=== PATIENT | female | born 1940 | race Caucasian/White ===

== ENCOUNTER → 2016-10-16 | Outpatient (CLI) | payer MEDICARE ==
[~2016-10-16] MED LIST: ALPR.5T; ASP325T; ASP81CT GT; CARV3.122 PO; CEFD300C PO; CLCX200C; ENOX120D PO; ESTR0.3T; FEXO180T; FLT22013; FURO20TA4; GABA300C; GADOXETATE 2.5 MMOL/10 ML (EOVIST) IV ONE; HYDR-3857 PO; IPRA3AMP19; LVT.05T PO; METO100T5; POTA20PI IV; PROP1TAB77; TOLTA4; TRIA1CAP PO; TRM50T PO; TROSP20C; VALS160C; VLS80C PO; WRF10T PO
[2016-10-16 12:26] LABS: ALBUMIN 3.8 G/DL (3.2-4.5); CREATININE SERUM 1.2 MG/DL (0.60-1.30)
--- NOTE | 2016-10-16 14:42 | Diagnostic Imaging Report ---
INDICATION: Liver lesions. TECHNIQUE: MRI of the abdomen obtained pre and post IV contrast with Eovist contrast protocol. FINDINGS: There are four separate lesions in the liver in the right lobe. There is a lesion in the right lobe laterally measuring about 1.3 cm. There is a lesion in the right lobe laterally and anteriorly, more inferior to the above lesion, measuring about 2.0 cm. There is a lesion just medial to this lesion measuring about 11 mm. There is a tiny lesion in the right lobe anteriorly measuring about 3 mm. These lesion all have similar characteristics with lack of enhancement and bright signal on T2-weighted images. These are all compatible with cysts. There is no definite solid liver lesion. The spleen, adrenals, and pancreas are normal in appearance. The kidneys bilaterally are unremarkable. There is no retroperitoneal mass or hematoma. There is no ascites. IMPRESSION: There are four separate small lesions in the liver as described above which appear to be simple cysts. There is no solid lesion. There is no other focal abnormality. Dictated by: Dictated on workstation # [id number]
[2016-10-19 08:08] LABS: ALPHA-FETO PROTEIN MARKER 2.2 ng/mL (1.5-10.0)
== END ==
LOC: RAD 11:07
DX: R93.2 Abnormal findings on diagnostic imaging of liver and biliary tract (principal); K76.9 Liver disease, unspecified
CPT/HCPCS: 36415; 74183; 82040; 82105; 82378; 82565; 86301

== ENCOUNTER → 2018-10-18 | Outpatient (CLI) | payer MEDICARE ==
[~2018-10-18] MED LIST changes: -GADOXETATE 2.5 MMOL/10 ML (EOVIST) IV ONE
== END ==
LOC: WOUNDCARE 09:43
PROVIDERS: ATTEND Nurse Practitioner
DX: L97.222 Non-pressure chronic ulcer of left calf with fat layer exposed (principal); I87.2 Venous insufficiency (chronic) (peripheral); I70.242 Atherosclerosis of native arteries of left leg with ulceration of calf
CPT/HCPCS: 99214

== ENCOUNTER → 2018-10-27 | Outpatient (CLI) | payer MEDICARE | LOC: WOUNDCARE 09:59 | PROVIDERS: ATTEND Nurse Practitioner | DX: L97.222 Non-pressure chronic ulcer of left calf with fat layer exposed (principal); I87.2 Venous insufficiency (chronic) (peripheral); I70.242 Atherosclerosis of native arteries of left leg with ulceration of calf | CPT/HCPCS: 99212; 99213 ==

== ENCOUNTER 2018-11-02 12:53 | Emergency (ER) | payer MEDICARE ==
[~2018-11-02] VITALS: Ht 160 cm; Wt 103.4 kg
--- OUTSIDE RECORDS SUMMARY | 2018-11-02 12:59 | XMS REPORT | Clinical Summary ---
Author Author [facility] Organization [facility] Address Unknown Phone Unavailable Care Team Providers Care Train Braker Name Role Phone PCP Unavailable Allergies Not on File Current Medications Not on file Active Problems Not on file Social History Tobacco Use Types Packs/Day Years Used Date Never Assessed Sex Assigned at Date Recorded Not on file Last Filed Vital Signs Not on file Plan of Treatment Not on file Results Not on filefrom Last 3 Months
--- OUTSIDE RECORDS SUMMARY | 2018-11-02 13:00 | XMS REPORT | Continuity of Care Document ---
Author Author [facility] Organization [facility] Address Unknown Phone Unavailable Care Team Providers Care Profile Grinder Technician Name Role Phone LILIANA CUEVAS MD PP Insurance Providers Payer Name Policy Number Subscriber Name Relationship Nawaf De Souza [facility] Supp [id number] Divya Berrios Self / Same As Patient Wps Medicare [id number] Divya Berrios Self / Same As Patient Advance Directives Directive Response Recorded Date Advance Directives Y 02/05/13 4:59am Health Care Power of Quality Assurance Specialist Y 02/05/13 4:59am Organ Donor N 02/05/13 4:59am Problems No Known Problems or Medical conditions. Family History History Response Recorded Date/Time Hx Family Cancer Y FATHER MELANOMA/GRANDMOTHER CA PANCREAS 02/05/13 4:10am Hx Family Cardiac Disorders Y 02/05/13 4:10am Hx Family Myocardial Infarction Y GRANDFATHER 02/05/13 4:10am Social History History Response Recorded Date/Time Alcohol Use Occasionally Uses 02/05/13 4:10am Recreational Drug Use N 02/05/13 4:10am Sexually Transmitted Disease N 02/05/13 4:10am Allergies, Adverse Reactions, Alerts Allergen Type Severity Reaction Last Updated No Known Drug Allergies 12/07/08 Medications Medication Dose Units Route Sig Qty Days Cefdinir (Omnicef Capsule) 300 Mg PO BID 7 Warfarin Sodium (Coumadin) 1 Each PO DAILY 30 Enoxaparin Sodium (Lovenox) 1 Each PO Q12HR 7 Hydrocodone Bit/Acetaminophen (Hydrocodon-Acetaminoph 2.5-325) 1 Each PO Tramadol HCl (Ultram) 50 Mg PO BID Potassium Chloride 10 Meq IV Carvedilol 1 Each PO BID Levothyroxine Sodium (Synthroid) 1 Each PO DAILY Aspirin (Baby Aspirin Chewable Tablet) 81 Mg GT Albuterol Sulfate/Ipratropium (Duoneb 2.5-0.5 Mg/3 Ml Soln) Fluticasone Propionate (Flovent Hfa 220 Mcg) Alprazolam (Xanax) Furosemide Gabapentin (Neurontin) Triamterene/HCTZ (Dyazide 37.5-25 Capsule) 1 Each PO DAILY Valsartan (Diovan 80 Mg) 1 Each PO DAILY Celecoxib (Celebrex) Estrogens Conjugated (Premarin Tab) Trospium Chloride (Sanctura) Propoxyphene HCl/Acetaminophen (Darvocet-N 100/650) Fexofenadine HCl (Rosemarie) Tolterodine Tartrate (Detrol La 4 Mg Cap) Metoprolol Succinate (Metoprolol Succinate Xl 100 Mg) Immunizations Name Given Type Date of Pneumonia Vaccine 06/14/04 H pneumococcal polysaccharide PPV23 02/07/13 A pneumococcal polysaccharide PPV23 02/07/13 A Response Recorded Date/Time Status not known Unknown Results Test Date Result Interp. Ref. Range Activated Partial Thromboplast Time February 05, 2013 12:42am 29 SEC N 24-35 Alanine Aminotransferase (ALT/SGPT) February 05, 2013 12:42am 28 U/L L 30-65 Albumin February 05, 2013 12:42am 2.9 G/DL L 3.4-5.0 Alkaline Phosphatase February 05, 2013 12:42am 78 U/L N 50-136 Aspartate Amino Transf (AST/SGOT) February 05, 2013 12:42am 14 U/L L 15-37 BUN/Creatinine Ratio February 05, 2013 12:42am 12 - Basophils # (Auto) February 05, 2013 12:42am 0.0 10^3/uL N 0.0-0.1 Basophils (%) (Auto) February 05, 2013 12:42am 0 % N 0-10 Blood Urea Nitrogen February 05, 2013 12:42am 17 MG/DL N 7-18 Calcium Level February 05, 2013 12:42am 10.0 MG/DL N 8.5-10.1 Carbon Dioxide Level February 05, 2013 12:42am 36 MMOL/L H 21-32 Chloride Level February 05, 2013 12:42am 102 MMOL/L N 101-110 Creatinine February 05, 2013 12:42am 1.4 MG/DL H 0.6-1.3 Eosinophils # (Auto) February 05, 2013 12:42am 0.2 10^3/uL N 0.0-0.3 Eosinophils (%) (Auto) February 05, 2013 12:42am 1 % N 0-10 Glucose Level February 05, 2013 12:42am 154 MG/DL H 74-106 Hematocrit February 05, 2013 12:42am 49 % N 35-52 Hemoglobin February 05, 2013 12:42am 16.9 G/DL H 11.5-16.0 Lymphocytes # (Auto) February 05, 2013 12:42am 4.2 X 10^3 H 1.0-4.0 Lymphocytes (%) (Auto) February 05, 2013 12:42am 38 % N 12-44 Magnesium Level December 08, 2008 6:10am 1.6 MG/DL L 1.8-2.4 Mean Corpuscular Hemoglobin February 05, 2013 12:42am 32 PG N 25-34 Mean Corpuscular Hemoglobin Concent February 05, 2013 12:42am 35 G/DL N 32-36 Mean Corpuscular Volume February 05, 2013 12:42am 93 FL N 80-99 Mean Platelet Volume February 05, 2013 12:42am 11.1 FL H 7.4-10.4 Monocytes # (Auto) February 05, 2013 12:42am 0.9 X 10^3 N 0.0-1.0 Monocytes (%) (Auto) February 05, 2013 12:42am 8 % N 0-12 Neutrophils # (Auto) February 05, 2013 12:42am 5.7 X 10^3 N 1.8-7.8 Neutrophils (%) (Auto) February 05, 2013 12:42am 52 % N 42-75 Platelet Count February 05, 2013 12:42am 162 10^3/uL N 130-400 Potassium Level February 05, 2013 12:42am 3.2 MMOL/L L 3.6-5.0 Prothrombin Time February 05, 2013 12:42am 12.4 SEC N 12.2-14.7 Red Blood Count February 05, 2013 12:42am 5.27 10^6/uL N 4.35-5.85 Red Cell Distribution Width February 05, 2013 12:42am 15.0 % H 10.0-14.5 Sodium Level February 05, 2013 12:42am 138 MMOL/L N 135-145 Total Bilirubin February 05, 2013 12:42am 0.3 MG/DL N 0.0-1.0 Total Protein February 05, 2013 12:42am 6.3 G/DL L 6.4-8.2 Urine Bacteria February 05, 2013 1:55am LARGE /HPF H - Urine Bilirubin February 05, 2013 1:55am 1+ H - Urine Casts February 05, 2013 1:55am NONE /LPF - Urine Clarity February 05, 2013 1:55am VERY CLOUDY H - Urine Color February 05, 2013 1:55am HUANG H - Urine Crystals February 05, 2013 1:55am NONE /LPF - Urine Culture Indicated February 05, 2013 1:55am YES - Urine Glucose (UA) February 05, 2013 1:55am NEGATIVE - Urine Ketones February 05, 2013 1:55am 1+ H - Urine Leukocyte Esterase February 05, 2013 1:55am 3+ H - Urine Mucus February 05, 2013 1:55am NEGATIVE /LPF - Urine Nitrite February 05, 2013 1:55am NEGATIVE - Urine Protein February 05, 2013 1:55am 2+ H - Urine RBC February 05, 2013 1:55am RARE /HPF - Urine Specific [place] February 05, 2013 1:55am 1.015 L - Urine Squamous Epithelial Cells February 05, 2013 1:55am 25-50 /HPF H - Urine Urobilinogen February 05, 2013 1:55am 1 MG/DL - Urine WBC February 05, 2013 1:55am 50-100 /HPF H - Urine pH February 05, 2013 1:55am 5 - White Blood Count February 05, 2013 12:42am 11.1 10^3/uL H 4.3-11.0 Estimat Glomerular Filtration Rate February 05, 2013 12:42am 37 - Urine RBC (Auto) February 05, 2013 1:55am 1+ H - INR Comment February 05, 2013 12:42am 0.9 N 0.8-1.4 Procedures Procedure Code Date UPPER GI ENDOSCOPY BIOPSY 82782 10/25/06 LESION REMOVE COLONOSCOPY 58819 10/25/06 COLONOSCOPY AND BIOPSY 09899 10/25/06 OTHER OPEN INCISIONAL HERNIA REPAIR WITH GRAFT OR PROSTHESIS 53.61 12/07/08 ASPIRATION SKIN & SUBQ 86.01 01/17/09 MRSA Screen 12/05/08 Gram Stain 08/06/09 Encounters Encounter Location Date/Time Discharged Inpatient [facility] 02/05/13 3:33am
--- OUTSIDE RECORDS SUMMARY | 2018-11-02 13:00 | XMS REPORT | Continuity of Care Document ---
Author Organization Unknown Address Unknown Allergies Active Description Code Type Severity Reaction Onset Reported/Identified Relationship to Patient Clinical Status Yes No Known Drug Allergies [id number] Drug Allergy Unknown N/A 12/07/2008 Medications There is no data. Problems Date Dx Coded Attending Type Code Diagnosis Diagnosed By 02/07/2013 MARIANELA ESCAMILLA DO S Ot 041.89 BACTERIAL INFECTION DUE TO OTHER SPECIFI 02/07/2013 SAMANTHANDMARINA DOJUANMARIANELA S Ot 244.9 HYPOTHYROIDISM NOS 02/07/2013 SAMANTHANDMARINA DO MARIANELA S Ot 276.51 DEHYDRATION 02/07/2013 SAMANTHANDMARINA DO MARIANELA S Ot 276.8 HYPOPOTASSEMIA 02/07/2013 SAMANTHANDMARINA DO MARIANELA S Ot 305.1 TOBACCO USE DISORDER 02/07/2013 SAMANTHANDER DO, MARIANELA S Ot 415.19 OTH PULMON EMBOLISM/INFARCT 02/07/2013 SAMANTHANDER DO MARIANELA S Ot 453.41 ACUTE VENOUS EMBOLISM THROMBOSIS DEEP 02/07/2013 SAMANTHANDER DO, MARIANELA S Ot 458.9 HYPOTENSION NOS 02/07/2013 SAMANTHANDER DO, MARIANELA S Ot 496 CHR AIRWAY OBSTRUCT NEC 02/07/2013 SAMANTHANDER DO MARIANELA S Ot 530.81 ESOPHAGEAL REFLUX 02/07/2013 SAMANTHANDMARINA DO MARIANELA S Ot 593.9 RENAL URETERAL DIS NOS 02/07/2013 SAMANTHANDER DO, MARIANELA S Ot 599.0 URIN TRACT INFECTION NOS 10/16/2016 CORY QUINONEZ, CECILE Mc Ot R93.2 ABNORMAL FINDINGS ON DX IMAGING OF LIVER 10/16/2016 CORY QUINONEZ, CECILE Mc Ot Z85.038 PERSONAL HISTORY OF MALIGNANT NEOPLASM O 10/16/2016 CECILE RAY MD Ot Z86.010 PERSONAL HISTORY OF COLONIC POLYPS 10/16/2016 CECILE RAY MD Ot R93.2 ABNORMAL FINDINGS ON DX IMAGING OF LIVER 10/16/2016 CECILE RAY MD Ot Z85.038 PERSONAL HISTORY OF MALIGNANT NEOPLASM O 10/16/2016 CECILE RAY MD Ot Z86.010 PERSONAL HISTORY OF COLONIC POLYPS 10/16/2016 CECILE RAY MD Ot R93.2 ABNORMAL FINDINGS ON DX IMAGING OF LIVER 10/16/2016 CECILE RAY MD Ot Z85.038 PERSONAL HISTORY OF MALIGNANT NEOPLASM O 10/16/2016 CECILE RAY MD L Ot Z86.010 PERSONAL HISTORY OF COLONIC POLYPS 10/16/2016 CECILE RAY MD Ot R93.2 ABNORMAL FINDINGS ON DX IMAGING OF LIVER 10/16/2016 CECILE RAY MD Ot Z85.038 PERSONAL HISTORY OF MALIGNANT NEOPLASM O 10/16/2016 CECILE RAY MD Ot Z86.010 PERSONAL HISTORY OF COLONIC POLYPS 10/16/2016 CECILE RAY MD Ot R93.2 ABNORMAL FINDINGS ON DX IMAGING OF LIVER 10/16/2016 CECILE RAY MD Ot Z85.038 PERSONAL HISTORY OF MALIGNANT NEOPLASM O 10/16/2016 CECILE RAY MD Ot Z86.010 PERSONAL HISTORY OF COLONIC POLYPS 10/23/2016 CECILE RAY MD Ot K76.9 LIVER DISEASE, UNSPECIFIED 10/23/2016 CECILE RAY MD Ot R93.2 ABNORMAL FINDINGS ON DX IMAGING OF LIVER 11/11/2016 CECILE RAY MD Ot K76.9 LIVER DISEASE, UNSPECIFIED 11/11/2016 CECILE RAY MD Ot R93.2 ABNORMAL FINDINGS ON DX IMAGING OF LIVER 11/12/2016 CECILE RAY MD Ot K76.9 LIVER DISEASE, UNSPECIFIED 11/12/2016 CECILE RAY MD Ot R93.2 ABNORMAL FINDINGS ON DX IMAGING OF LIVER 11/23/2016 CECILE RAY MD Ot K76.9 LIVER DISEASE, UNSPECIFIED 11/23/2016 CECILE RAY MD Ot R93.2 ABNORMAL FINDINGS ON DX IMAGING OF LIVER 10/18/2018 CECILE RAY MD Ot K76.9 LIVER DISEASE, UNSPECIFIED 10/18/2018 CECILE RAY MD Ot R93.2 ABNORMAL FINDINGS ON DX IMAGING OF LIVER 10/21/2018 JUAN F KENDRICK APRN Ot 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 Results Test Result Range Serum or plasma creatinine measurement (mass/volume) - 10/16/16 11:49 Serum or plasma creatinine measurement (mass/volume) 1.20 mg/dL 0.60-1.30 Serum or plasma albumin measurement (mass/volume) - 10/16/16 11:49 Serum or plasma albumin measurement (mass/volume) 3.8 g/dL 3.2-4.5 Serum or plasma [id number].tumor marker measurement (mass/volume) - 10/16/16 11:49 Serum or plasma [id number]-[id number].tumor marker measurement (mass/volume) 2.2 % 1.5-10.0 CARCINOEMBRYONIC ANTIGEN - 10/16/16 11:49 CEA PATIENT 4.6 % 0.0-5.0 CA 19-9 - 10/16/16 11:49 CA 19-9 C 10 u[iU]/mL 0-37 Encounters ACCT No. Visit Date/Time Discharge Status Pt. Type Provider Facility Loc./Unit Complaint [id number] 10/27/2018 11:45:00 10/27/2018 23:59:59 CLS Outpatient [facility] [id number] 10/27/2018 09:59:00 10/27/2018 23:59:59 CLS Outpatient JUAN F KENDRICK APRN [facility] [id number] 10/18/2018 09:43:00 10/18/2018 23:59:59 CLS Outpatient JUAN F KENDRICK APRN [facility] [id number] 10/16/2016 11:07:00 10/16/2016 23:59:59 CLS Outpatient CECILE RAY MD [facility] RAD R93.2 [id number] 02/05/2013 03:33:00 02/07/2013 20:00:00 DIS Inpatient MARIANELA ESCAMILLA DO [facility] CSD PULMONARY EMBOLISM, DVT, HYPOTENSION
[2018-11-02] MEDS ORDERED: NEO/POLY/BAC (NEOSPORIN) OINT 15 GM TUBE TOP SCH (13:30)
[2018-11-02] MEDS ORDERED: fentaNYL INJECTION 100 MCG/2 ML AMP IVP ONE (13:30)
[2018-11-02] MEDS ORDERED: TETANUS,DIPTH,PERTUSS P/F (BOOSTRIX) 0.5 ML VIAL IM ONE (13:30)
[2018-11-02 13:38] LABS: WHITE BLOOD COUNT 7.8 10^3/uL (4.3-11.0)
[2018-11-02 13:39] LABS: BASOPHILS % (AUTO) 1 % (0-10); EOSINOPHILS % (AUTO) 2 % (0-10); HEMATOCRIT 56 % (35-52); HEMOGLOBIN 18.2 G/DL (11.5-16.0); MEAN CORPUSCULAR HEMOGLOBIN 31 PG (25-34); MEAN CORPUSCULAR HGB CONC 33 G/DL (32-36); MEAN CORPUSCULAR VOLUME 96 FL (80-99); MEAN PLATELET VOLUME 10.8 FL (7.4-10.4); MONOCYTES % (AUTO) 8 % (0-12); NEUTROPHILS % (AUTO) 38 % (42-75); PLATELET COUNT 131 10^3/uL (130-400); RED CELL DISTRIBUTION WIDTH 13.3 % (10.0-14.5)
[2018-11-02 13:40] LABS: EOSINOPHILS # (AUTO) 0.1 10^3/uL (0.0-0.3); LYMPHOCYTES % (AUTO) 51 % (12-44); MONOCYTES # (AUTO) 0.6 X 10^3 (0.0-1.0)
[2018-11-02 13:41] LABS: INR 1.8 (0.8-1.4); PROTHROMBIN TIME PATIENT 21.5 SEC (12.2-14.7)
[2018-11-02 13:48] LABS: BUN/CREATININE RATIO 17; CARBON DIOXIDE 27 MMOL/L (21-32); CHLORIDE 101 MMOL/L (98-107); CREATININE SERUM 1.24 MG/DL (0.60-1.30); GFR ESTIMATED 42; POTASSIUM 4.1 MMOL/L (3.6-5.0); SODIUM 143 MMOL/L (135-145)
[2018-11-02 13:49] LABS: ALANINE AMINOTRANSFERASE 15 U/L (0-55); ALBUMIN 3.9 GM/DL (3.2-4.5); ALKALINE PHOSPHATASE 76 U/L (40-136); BILIRUBIN,TOTAL 1.2 MG/DL (0.1-1.0); CALCIUM 10.3 MG/DL (8.5-10.1); GLUCOSE 73 MG/DL (70-105)
--- NOTE | 2018-11-02 13:51 | ED Trauma-Multisystem ---
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 She denies daily use of any other medications and denies any history of chronic cardiac or respiratory disease. She presents from her assisted living facility with concern for an unwitnessed ground-level fall. She states that she was getting something out in the kitchen and thinks she may have slipped on some ice or water on the ground and fell onto her left side, striking her left face and left leg against the ground. She reports pain to her left congregation and upper cheek bone as well as to her left thigh and left knee and left fulton where there is a shallow, superficial, hemostatic skin tear noted. She denies pain anywhere else and vociferously denies any precipitating focal weakness, lightheadedness, vertigo, shortness of breath or chest pain. She denies loss of consciousness, nausea or vomiting or amnesia to events. She is pleasantly and appropriately int eractive and alert and oriented 4 moving all extremities and in no acute distress. Vital signs are appropriate upon initial evaluation in the emergency department. The patient denies fevers, headache, focal weakness, numbness, tingling, neck stiffness, vision changes, abdominal pain, flank pain, back pain, dysuria or hematuria, changes in bowel habits. Allergies and Home Medications Allergies Coded Allergies: sulfamethoxazole (Verified Allergy, Unknown, 11/02/18) trimethoprim (Verified Allergy, Unknown, 11/02/18) Home Medications Carvedilol 3.125 Mg Tablet, 1 EACH PO BID, (Reported) Cefdinir 300 Mg Capsule, 300 MG PO BID Prescribed by: MARIANELA ESCAMILLA on 02/07/131817 Enoxaparin Sodium 120 Mg/0.8 Ml Disp.syrin, 1 EACH PO Q12HR Prescribed by: MARIANELA ESCAMILLA on 02/07/131817 Levothyroxine Sodium 50 Mcg Tablet, 1 EACH PO DAILY, (Reported) Tramadol Hcl 50 Mg Tab, 50 MG PO BID, (Reported) Warfarin Sodium 10 Mg Tablet, 1 EACH PO DAILY Prescribed by: MARIANELA ESCAMILLA on 02/07/13 1818 Patient Home Medication List Home Medication List Reviewed: Yes Review of Systems Review of Systems Constitutional: see HPI All Other Systems Reviewed Negative Unless Noted: Yes Past Yosemxr-Eqjors-Tqrdml Hx Past Med/Social Hx: Reviewed Nursing Past Med/Soc Hx Immunizations Up To Date Date of Pneumonia Vaccine: Jun 14, 2004 Past Medical History Pneumonia, COPD Reproductive Disorders: No Sexually Transmitted Disease: No Neurogenic Bladder Gastroesophageal Reflux Hypothyroidsim Rectal Family Medical History Reviewed Nursing Family Hx No Pertinent Family Hx Physical Exam Vital Signs Vital Signs - First Documented 11/02/18 13:00 Temp 97.4 Pulse 77 Resp 16 B/P (MAP) 138/60 (86) Pulse Ox 100 O2 Delivery Room Air Height, Weight, BMI Height: '" Weight: 272lbs. 0.0oz. [id number]; BMI Method:Stated General Appearance: No Apparent Distress This is an elderly female appearing nontoxic and in no acute distress. She is alert and oriented 4 and pleasantly and appropriately interactive. Head is normocephalic and there is a mild left temporal contusion noted. There are no signs of basilar fracture. There are no other signs of facial, scalp or neck trauma. Neck is supple and nontender. Oropharynx is moist. There is no instability of the midface, malocclusion or dental deformity. Lungs are clear to auscultation at all stations. There is a normal S1 and S2 without rubs or gallops and capillary refill is appropriate, less than 2 seconds globally. Abdomen is soft, nontender and nondistended. Skin is warm and dry without cyanosis, clubbing or edema. Psychiatrically, the patient demonstrates appropriate mood and affect is alert. From a neurologic standpoint, cranial nerves II through XII are intact and there are no lateralizing deficits noted. Speech is normal. Language is normal. Coordination is normal. There is no dysmetria with recscg-hd-zpat bilaterally. Strength is 5 out of 5 in all joints of bilateral upper and lower extremities. Sensation is intact to light touch in bilateral upper and lower extremities. Ambulation testing is deferred. Examination of the left lower extremity is remarkable for mild contusion to left lateral hip inferior to the greater trochanter and extending down to just above the level of the knee. There is mild pain with ranging of the left knee. There is mild tenderness to the left ankle and mild pain with ranging to the left ankle and mild tenderness to a site on the left fulton that is just proximal to the ankle where a 3 cm x 2 cm hemostatic skin tear is noted. There is an old healing wound to the medial lower left fulton without surrounding erythema, warmth or swelling. The patient states this is followed by the wound care clinic. Progress/Results/Core Measures Results/Orders Lab Results Laboratory Tests Test 11/02/18 13:05 Range/Units White Blood Count 7.8 4.3-11.0 10^3/uL Red Blood Count 5.84 4.35-5.85 10^6/uL Hemoglobin 18.2 H 11.5-16.0 G/DL Hematocrit 56 H 35-52 % Mean Corpuscular Volume 96 80-99 FL Mean Corpuscular Hemoglobin 31 25-34 PG Mean Corpuscular Hemoglobin Concent 33 32-36 G/DL Red Cell Distribution Width 13.3 10.0-14.5 % Platelet Count 131 130-400 10^3/uL Mean Platelet Volume 10.8 H 7.4-10.4 FL Neutrophils (%) (Auto) 38 L 42-75 % Lymphocytes (%) (Auto) 51 H 12-44 % Monocytes (%) (Auto) 8 0-12 % Eosinophils (%) (Auto) 2 0-10 % Basophils (%) (Auto) 1 0-10 % Neutrophils # (Auto) 3.0 1.8-7.8 X 10^3 Lymphocytes # (Auto) 4.0 1.0-4.0 X 10^3 Monocytes # (Auto) 0.6 0.0-1.0 X 10^3 Eosinophils # (Auto) 0.1 0.0-0.3 10^3/uL Basophils # (Auto) 0.0 0.0-0.1 10^3/uL Prothrombin Time 21.5 H 12.2-14.7 SEC INR Comment 1.8 H 0.8-1.4 Activated Partial Thromboplast Time 35 24-35 SEC Sodium Level 143 135-145 MMOL/L Potassium Level 4.1 3.6-5.0 MMOL/L Chloride Level 101 98-107 MMOL/L Carbon Dioxide Level 27 21-32 MMOL/L Anion Gap 15 H 5-14 MMOL/L Blood Urea Nitrogen 21 H 7-18 MG/DL Creatinine 1.24 0.60-1.30 MG/DL Estimat Glomerular Filtration Rate 42 BUN/Creatinine Ratio 17 Glucose Level 73 70-105 MG/DL Calcium Level 10.3 H 8.5-10.1 MG/DL Corrected Calcium 10.4 H 8.5-10.1 MG/DL Total Bilirubin 1.2 H 0.1-1.0 MG/DL Aspartate Amino Transf (AST/SGOT) 22 5-34 U/L Alanine Aminotransferase (ALT/SGPT) 15 0-55 U/L Alkaline Phosphatase 76 40-136 U/L Troponin T < 6 <=10 NG/L Total Protein 7.0 6.4-8.2 GM/DL Albumin 3.9 3.2-4.5 GM/DL My Orders Orders - BRANDON HOUSER MD Cbc With Automated Diff (11/02/18 13:21) Comprehensive Metabolic Panel (11/02/18 13:21) Troponin T (11/02/18 13:21) Ekg Tracing (11/02/18 13:) Chest 1 View Ap/Pa Only (11/02/18 13:21) Protime With Inr (11/02/18 13:21) Partial Thromboplastin Time (11/02/18 13:21) Ua Culture If Indicated (11/02/18 13:21) Fentanyl Injection (Sublimaze Injection (11/02/18 13:30) Dipht,Pertuss(Acell),Tet Adult (Boostrix (11/02/18 13:30) Wound Dressing-Ed (11/02/18 13:21) Marcello/Poly/Marvin Topical Ointment (Neosporin (11/02/18 13:30) Ct Head/Face/Cervical Wo (11/02/18 13:21) Ankle 3 View Left (11/02/18 13:26) Tibia Fibula 2 View Left (11/02/18 13:26) Femur 2 View Left (11/02/18 13:26) Knee 3 View Left (11/02/18 13:26) Medications Given in ED Current Medications Medications Dose Ordered Sig/Sander Route Start Time Stop Time Status Last Admin Dose Admin Diphtheria/ Tetanus/Acell Pertussis 0.5 ml ONCE ONCE IM 11/02/18 13:30 5/22/19 13:31 DC 11/02/18 14:14 0.5 ML Fentanyl Citrate 25 mcg ONCE ONCE IVP 11/02/18 13:30 11/02/18 13:31 DC 11/02/18 13:35 25 MCG Vital Signs/I&O 11/02/18 11/02/18 13:00 13:35 Temp 97.4 97.4 Pulse 77 77 Resp 16 16 B/P (MAP) 138/60 (86) 138/60 (86) Pulse Ox 100 100 O2 Delivery Room Air Room Air Progress Progress Note : Time: 13:56 Progress Note Elderly female with unwitnessed fall at her assisted living facility. She is on Coumadin. She denies any precipitating nonmechanical cause for her fall but is not quite sure how and why she slipped and fell onto her left side. She is alert and oriented and clinical examination is reassuring. We'll check labs and EKG and chest x-ray and will obtain imaging of her left leg as well as advanced imaging of her head, cervical spine and maxillofacial region and will give a small dose of medication for discomfort as well as update tetanus and clean and dress the skin tear to her left leg. If workup is negative and the patient is able to ambulate safely, likely discharge back to her assisted living facility. The patient and her family understand and agree with the plan of care. Update: 1449: The patient is resting comfortably in no acute distress upon reassessment. Workup is as above, generally without significant evidence of acute process. Patient is slightly subtherapeutic on her Coumadin. Imaging is without evidence of fracture or other acute injury. The patient has been unable to provide a urine sample yet but I have counseled her that I have a low suspicion for urinary tract infection as a cause for her fall and that I am comfortable releasing her without a urine sample if necessary. We discussed that the patient will try to ambulate and that if she tolerates ambulation with her walker as per her baseline, that she may be released and go home with her son. I discussed with the patient and her family that there is a small but nonzero risk for a delayed bleed on Coumadin but that if they were comfortable discharging home and observing her closely for the next 24 hours versus initiating transfer for observation admission that I felt that was reasonable. Patient and family do indeed prefer to discharge if possible. We will road test the patient and if she tolerates ambulation will proceed with discharge home with some medication for symptomatic management and very close follow-up with her primary care. He and family understand and agree with this plan. Update: 1456: Patient has tolerated ambulation with no difficulty and is involuting at her baseline. She and family feel comfortable with her discharge. We'll proceed with discharge home. She is to take tramadol as needed for breakthrough discomfort and Tylenol otherwise and she and her family understand that she is to return immediately for change in mental status, severely worsened pain or any other new concerns. They understand and agree. All courses are answered. Initial ECG Impression Date: November 02, 2018 Initial ECG Impression Time: 14:53 Comment Sinus rhythm, rate 60, no acute ST elevation or depression, VA 161, QRS 96, QTC 427, EP interpretation. Diagnostic Imaging Diagonstic Imaging: Xray, CT Plain Films/CT/US/NM/MRI: facial bones, chest, c-spine, femur, leg, knee, ankle, head Comments CT of head, cervical spine and maxillofacial region negative per radiologist read. Plain films of chest, left femur, left knee, left tib-fib and left ankle negative for acute fracture per radiologist read. Departure Impression Primary Impression: Fall on same level from slipping, tripping and stumbling with subsequent striking against other object, initial encounter Additional Impressions: Contusion of face Qualified Codes: S00.83XA - Contusion of other part of head, initial encounter Contusion of left thigh, initial encounter Skin tear of left lower leg without complication Qualified Codes: S81.812A - Laceration without foreign body, left lower leg, initial encounter Disposition: 01 HOME, SELF-CARE Condition: Improved Departure-Patient Inst. Decision time for Depature: 14:59 Referrals: [facility] (PCP) Primary Care Physician RENEE WILSON APRN (Family) Primary Care Physician Patient Instructions: Contusion (DC), Wound Care, Preventing Falls, Skin Abrasions (DC), Minor Head Injury Add. Discharge Instructions: All discharge instructions reviewed with patient and/or family. Voiced understanding. Follow up in the next 1-2 days with your primary care doctor. Return immediately for worsened symptoms or other new concern. BRANDON HOUSER MD November 02, 2018 13:51
--- NOTE | 2018-11-02 14:23 | Diagnostic Imaging Report ---
INDICATION: Fall and leg pain. Time of exam 1:35 p.m. COMPARISON: Comparison is made with prior chest from 01/16/2013. FINDINGS: The heart size is normal. The pulmonary vascularity is unremarkable. The lungs are clear. No infiltrate, effusion or pneumothorax is detected. IMPRESSION: No acute cardiopulmonary process is detected. Dictated by: Dictated on workstation # [id number]
--- NOTE | 2018-11-02 14:24 | Diagnostic Imaging Report ---
INDICATION: Fall with left leg pain. TIME OF EXAM: 01:45 p.m. Alignment at the hip and knee appears normal. Femur appears to be intact. No fractures are seen. There are medial compartmental degenerative changes at the left knee. IMPRESSION: No acute bony abnormality is detected. Dictated by: Dictated on workstation # [id number]
--- NOTE | 2018-11-02 14:24 | Diagnostic Imaging Report ---
INDICATION: Fall with left ankle injury and pain. TIME OF EXAM: 1:37 p.m. FINDINGS: Three views of the left ankle were obtained. Alignment is normal. The ankle mortise is well maintained. The talar dome is smooth. There is a well-corticated osseous density adjacent to the medial malleolus consistent with an old fracture. No acute fracture is identified. Plantar calcaneal spur is noted. IMPRESSION: No acute bony abnormality is detected. Dictated by: Dictated on workstation # [id number]
--- NOTE | 2018-11-02 14:25 | Diagnostic Imaging Report ---
INDICATION: Fall with left leg pain. TIME OF EXAM: 01:43 p.m. Three views left knee show normal alignment. There is medial compartment degenerative change with mild joint space narrowing and marginal spurring. No fracture, dislocation or effusion is seen. IMPRESSION: Medial compartmental degenerative change. No acute bony abnormality is detected. Dictated by: Dictated on workstation # [id number]
--- NOTE | 2018-11-02 14:26 | Diagnostic Imaging Report ---
INDICATION: Fall with left leg pain. TIME OF EXAM: 1:39 p.m. FINDINGS: AP and lateral views of the left tibia and fibula were obtained. Alignment at the knee and ankle is normal. Tibia and fibula appear intact. No fractures are seen. IMPRESSION: No acute bony abnormality is detected. Dictated by: Dictated on workstation # [id number]
--- NOTE | 2018-11-02 14:31 | Diagnostic Imaging Report ---
PROCEDURE: CT head, face, and cervical spine without contrast. TECHNIQUE: Multiple contiguous axial images were obtained through the head, neck, and facial bones without the use of intravenous contrast. Sagittal and coronal reformations through the cervical spine and facial bones were also performed. Auto Exposure Controls were utilized during the CT exam to meet ALARA standards for radiation dose reduction. INDICATION: Fall. Trauma to the head and face. Comparison: None Findings: CT head: The ventricles and cortical sulci are diffusely prominent, compatible with age-related volume loss. There are confluent areas of abnormal, low attenuation in the periventricular white matter. This is consistent with small vessel ischemic changes; age-indeterminate. There is no prior study available for comparison. There is no midline shift or mass-effect. No acute intra-axial hemorrhage is seen. There are no abnormal areas of increased or decreased density to suggest acute hemorrhage or edema. No extra-axial masses or collections are present. The bony calvarium is intact. CT facial bones: Evaluation of paranasal sinuses demonstrates minimal scattered mucosal thickening of the ethmoid air cells. Small air-fluid level is noted within the left sphenoid sinus. Paranasal sinuses are otherwise unremarkable. There is no CT evidence of acute fracture of the paranasal sinuses. Bilateral nasal bones are intact. There is a leftward hooking ad slight deviation of the posterior nasal septum. This however appears to be on a congenital or developmental basis. There is no fracture of the nasal septum. Note is made of moderate mucosal thickening of the turbinates bilaterally. There is no fracture of the orbits. Globes are symmetric. No unexpected radiopaque foreign bodies are seen. Zygomatic arches are intact. There is no fracture of the medial or lateral pterygoid plates on either side. There is no fracture or dislocation of the mandible. There is no fracture of the alveolar ridge of the maxilla. Other surrounding soft tissue structures are unremarkable as well. CT cervical spine: Static alignment of the cervical spine is maintained. There is no significant anteroretrolisthesis. There is no evidence of jumped facets. Vertebral body heights are maintained. There is no evidence for acute fracture. No bony fragments are seen within the spinal canal. There are moderate multilevel degenerative changes consisting of intervertebral disc height loss with anterior and posterior disc bulges. These changes appear greatest at the C4-C5 and C5-C6 levels. Pre-and paravertebral soft tissue structures are unremarkable. Note is made of calcified carotid atherosclerosis. Included portions of the lung apices are clear. Impression: 1. No acute intracranial abnormality. No CT evidence of acute infarct, mass, or hemorrhage. 2. Chronic small vessel ischemic changes in the deep white matter. 3. No acute fracture or dislocation of the facial bones. 4. No acute fracture or dislocation of cervical spine. 5. Moderate degenerative changes cervical spine, greatest at the C4-C5 and C5-C6 levels. Dictated by: Dictated on workstation # [id number]
[2018-11-02 15:24] VITALS: BP 135/76
== END 2018-11-02 15:27 | disposition home or self-care (01) ==
LOC: EDUNIT# 12:53 → ER FS 12:56
DX: S81.812A Laceration without foreign body, left lower leg, initial encounter (principal); S00.83XA Contusion of other part of head, initial encounter; S70.12XA Contusion of left thigh, initial encounter; I10 Essential (primary) hypertension; E03.9 Hypothyroidism, unspecified; J44.9 Chronic obstructive pulmonary disease, unspecified; K21.9 Gastro-esophageal reflux disease without esophagitis; Z87.01 Personal history of pneumonia (recurrent); Z86.718 Personal history of other venous thrombosis and embolism; Z86.711 Personal history of pulmonary embolism; Z79.01 Long term (current) use of anticoagulants; Z88.2 Allergy status to sulfonamides; Z88.1 Allergy status to other antibiotic agents; W01.198A Fall on same level from slipping, tripping and stumbling with subsequent striking against other object, initial encounter; Y92.000 Kitchen of unspecified non-institutional (private) residence as the place of occurrence of the external cause
CPT/HCPCS: 36415; 70450; 70486; 71045; 72125; 73552; 73562; 73590; 73610; 80053; 84484; 85025; 85610; 85730; 90715; 93005

== ENCOUNTER → 2018-11-03 | Outpatient (CLI) | payer MEDICARE | LOC: WOUNDCARE 10:12 | PROVIDERS: ATTEND Nurse Practitioner | DX: L97.222 Non-pressure chronic ulcer of left calf with fat layer exposed (principal); I87.2 Venous insufficiency (chronic) (peripheral); I70.242 Atherosclerosis of native arteries of left leg with ulceration of calf | CPT/HCPCS: 11042 ==

== ENCOUNTER 2018-11-09 17:56 | Observation (INO) | payer MEDICARE | END 2018-11-11 17:45 | disposition home or self-care (01) | LOC: ER 17:56 → 4TH 19:40 ==

== ENCOUNTER → 2018-11-15 | Outpatient (CLI) | payer MEDICARE ==
[~2018-11-15] MED LIST changes: +AMOX-358 PO; +ASPI-983 PO; +CALC1TAB PO; +DOXY-227 PO; +FLUT16SP22 NS; +FURO20TA4 PO; +IPRA3AMP31 NEB; +L.AC1CAP6 PO; +SPIR50TA4 PO; +SUMA100T3 PO; +TRAM50TA2 PO; +WARF-48 PO; +WARF1TAB82 PO; +WARF4TAB70 PO
--- NOTE | 2018-11-15 13:40 | Diagnostic Imaging Report ---
INDICATION: Recent fall. Nonhealing wounds to the left lower leg. COMPARISON: None. FINDINGS: Multiple radiographic views of the left tibia and fibula show no fractures, dislocations, or other acute bony abnormalities identified. Joint spaces are well maintained throughout. There is generalized diminished bone mineral density. Note is also made of mild generalized soft tissue edema. No radiopaque foreign bodies are identified. IMPRESSION: 1. No evidence of acute fracture or dislocation in the left tibia or fibula. 2. Mild generalized soft tissue edema. 3. Generalized decreased bone mineral density. Correlation for underlying osteoporosis/osteopenia is recommended. Dictated by: Dictated on workstation # [id number]
--- NOTE | 2018-11-15 14:52 | Diagnostic Imaging Report ---
PROCEDURE: US left lower extremity venous. TECHNIQUE: Multiple Real-time grayscale images were obtained over the left lower extremity in various projections. Additional duplex Doppler and color Doppler images were also obtained. INDICATION: Left lower extremity edema and pain. FINDINGS: There is no evidence of a left lower extremity DVT. Compression and augmentation are difficult to evaluate due to patient pain and leg wounds. No thrombus is seen. No fluid collections are identified. IMPRESSION: No evidence of left lower extremity DVT. Dictated by: Dictated on workstation # [id number]
== END ==
LOC: RAD FS 12:50
PROVIDERS: ATTEND Nurse Practitioner Family
DX: S80.922A Unspecified superficial injury of left lower leg, initial encounter (principal); M81.0 Age-related osteoporosis without current pathological fracture; R60.0 Localized edema; W19.XXXA Unspecified fall, initial encounter; Z86.718 Personal history of other venous thrombosis and embolism
CPT/HCPCS: 73590

== ENCOUNTER → 2018-11-17 | Outpatient (CLI) | payer MEDICARE | LOC: WOUNDCARE 09:42 | PROVIDERS: ATTEND Nurse Practitioner | DX: L97.222 Non-pressure chronic ulcer of left calf with fat layer exposed (principal); I87.2 Venous insufficiency (chronic) (peripheral); I70.242 Atherosclerosis of native arteries of left leg with ulceration of calf | CPT/HCPCS: 11042 ==

== ENCOUNTER → 2018-11-22 | Outpatient (CLI) | payer MEDICARE | LOC: WOUNDCARE 10:38 | PROVIDERS: ATTEND Nurse Practitioner | DX: L97.222 Non-pressure chronic ulcer of left calf with fat layer exposed (principal); I87.2 Venous insufficiency (chronic) (peripheral); I70.242 Atherosclerosis of native arteries of left leg with ulceration of calf | CPT/HCPCS: 99213 ==

== ENCOUNTER → 2018-11-28 | Outpatient (CLI) | payer MEDICARE | LOC: LAB 11:41 | PROVIDERS: ATTEND Surgery | DX: I70.242 Atherosclerosis of native arteries of left leg with ulceration of calf (principal); L97.222 Non-pressure chronic ulcer of left calf with fat layer exposed | CPT/HCPCS: 36415; 84134 ==

== ENCOUNTER → 2018-11-28 | Outpatient (CLI) | payer MEDICARE | LOC: WOUNDCARE 10:12 | PROVIDERS: ATTEND Surgery | DX: I70.242 Atherosclerosis of native arteries of left leg with ulceration of calf (principal); I87.332 Chronic venous hypertension (idiopathic) with ulcer and inflammation of left lower extremity; L97.222 Non-pressure chronic ulcer of left calf with fat layer exposed; L03.116 Cellulitis of left lower limb | CPT/HCPCS: 99213 ==

== ENCOUNTER → 2018-11-29 | Outpatient (CLI) | payer MEDICARE ==
--- NOTE | 2018-11-29 17:49 | Diagnostic Imaging Report ---
EXAMINATION: Left lower extremity arterial Doppler. INDICATION: Atherosclerotic disease, leg pain. TECHNIQUE: Spectral and color flow imaging of the arterial system of the left lower extremity was performed. COMPARISON: There are no prior studies available for comparison. FINDINGS: There is fairly good arterial blood flow through the right lower extremity. Triphasic and biphasic waveforms were seen in the common femoral and profunda artery. However, the waveform changed to monophasic in the superficial femoral, popliteal, and trifurcation arteries. There is no abrupt alteration of the velocities to suggest a hemodynamically significant stenosis, however. IMPRESSION: The monophasic waveform in the superficial femoral, popliteal, and trifurcation arteries does suggest diminished blood flow, but there is no abrupt alteration of the velocities to indicate a hemodynamically significant stenosis. Dictated by: Dictated on workstation # [id number]
== END ==
LOC: RAD 12:59
PROVIDERS: ATTEND Surgery
DX: I70.242 Atherosclerosis of native arteries of left leg with ulceration of calf (principal); I87.332 Chronic venous hypertension (idiopathic) with ulcer and inflammation of left lower extremity; L97.222 Non-pressure chronic ulcer of left calf with fat layer exposed; L03.116 Cellulitis of left lower limb
CPT/HCPCS: 93926

== ENCOUNTER → 2018-12-05 | Outpatient (CLI) | payer MEDICARE | LOC: WOUNDCARE 10:05 | PROVIDERS: ATTEND Surgery | DX: I70.242 Atherosclerosis of native arteries of left leg with ulceration of calf (principal); I87.332 Chronic venous hypertension (idiopathic) with ulcer and inflammation of left lower extremity; L97.222 Non-pressure chronic ulcer of left calf with fat layer exposed; L03.116 Cellulitis of left lower limb | CPT/HCPCS: 99213 ==

== ENCOUNTER → 2018-12-06 | Outpatient (CLI) | payer MEDICARE ==
[~2018-12-06] MED LIST changes: +HOLD METFORMIN - RECEIVED CONTRAST 20 ML VIAL IV SCH; +IOHEXOL 350 MG/ML 150 ML (OMNIPAQUE 350) VIAL IV ONE; +NS 100 ML (IVPB) BAG IV ONE
--- NOTE | 2018-12-06 16:18 | Diagnostic Imaging Report ---
INDICATION: Left calf ulcers. TECHNIQUE: Axial imaging through the abdomen and pelvis and bilateral lower extremities was performed after the administration of intravenous contrast and utilizing the CT angiography protocol. Multiplanar, 3-D and MIP reformations were also performed. FINDINGS: The abdominal aorta is normal caliber. There are atherosclerotic calcifications present. Celiac trunk supplies the splenic artery. The hepatic appears to arise from the SMA which is patent. MATTHEW is patent. There are single renal arteries bilaterally which appear patent. The common and external iliac arteries demonstrate calcified plaque but no high-grade stenosis or occlusion is seen. Both common and femoral arteries appear to be widely patent. Profunda femoris arteries are patent bilaterally. Bilateral superficial femoral arteries are widely patent. No high-grade stenosis or occlusion is seen. The popliteal arteries are patent without stenosis. Trifurcation vessels below the knees are opacified. There is three-vessel runoff to the ankles bilaterally without evidence of occlusion. Liver contains low densities in the right lobe, likely cyst. Gallbladder is surgically absent. There is no biliary ductal dilatation. The pancreas and spleen are unremarkable. No adrenal mass is seen. Kidneys are unremarkable. Bowel loops are not dilated. There are post-surgical changes of ventral hernia repair within the anterior abdominal wall. There is no ascites. Bladder is decompressed. Right hip arthroplasty creates a large amount of artifact in the pelvis. IMPRESSION: Atherosclerotic changes throughout the aorta, iliac vessels and bilateral lower extremity arterial systems. However, no high-grade stenosis or occlusion is seen. There is three-vessel runoff to the ankles bilaterally. Dictated by: Dictated on workstation # [id number]
== END ==
LOC: RAD 14:19
PROVIDERS: ATTEND Surgery
DX: I70.242 Atherosclerosis of native arteries of left leg with ulceration of calf (principal); I70.201 Unspecified atherosclerosis of native arteries of extremities, right leg; I70.0 Atherosclerosis of aorta; Z90.49 Acquired absence of other specified parts of digestive tract; Z98.890 Other specified postprocedural states
CPT/HCPCS: 75635

== ENCOUNTER → 2018-12-12 | Outpatient (CLI) | payer MEDICARE ==
[~2018-12-12] MED LIST changes: -HOLD METFORMIN - RECEIVED CONTRAST 20 ML VIAL IV SCH; -IOHEXOL 350 MG/ML 150 ML (OMNIPAQUE 350) VIAL IV ONE; -NS 100 ML (IVPB) BAG IV ONE
== END ==
LOC: WOUNDCARE 11:31
PROVIDERS: ATTEND Surgery
DX: I70.242 Atherosclerosis of native arteries of left leg with ulceration of calf (principal); I87.332 Chronic venous hypertension (idiopathic) with ulcer and inflammation of left lower extremity; L97.222 Non-pressure chronic ulcer of left calf with fat layer exposed
CPT/HCPCS: 99213

== ENCOUNTER → 2018-12-19 | Outpatient (CLI) | payer MEDICARE | LOC: WOUNDCARE 10:33 | PROVIDERS: ATTEND Surgery | DX: L97.222 Non-pressure chronic ulcer of left calf with fat layer exposed (principal); I87.332 Chronic venous hypertension (idiopathic) with ulcer and inflammation of left lower extremity | CPT/HCPCS: 99213 ==

== ENCOUNTER → 2018-12-26 | Outpatient (CLI) | payer MEDICARE | LOC: WOUNDCARE 10:01 | PROVIDERS: ATTEND Surgery | DX: L97.222 Non-pressure chronic ulcer of left calf with fat layer exposed (principal); I87.332 Chronic venous hypertension (idiopathic) with ulcer and inflammation of left lower extremity; I96 Gangrene, not elsewhere classified | CPT/HCPCS: 99213 ==

== ENCOUNTER → 2019-01-03 | Outpatient (CLI) | payer MEDICARE | LOC: WOUNDCARE 12:39 | PROVIDERS: ATTEND Surgery | DX: L97.222 Non-pressure chronic ulcer of left calf with fat layer exposed (principal); I87.332 Chronic venous hypertension (idiopathic) with ulcer and inflammation of left lower extremity; I96 Gangrene, not elsewhere classified | CPT/HCPCS: 11042 ==

== ENCOUNTER → 2019-01-16 | Outpatient (CLI) | payer MEDICARE | LOC: WOUNDCARE 10:02 | PROVIDERS: ATTEND Surgery | DX: L97.222 Non-pressure chronic ulcer of left calf with fat layer exposed (principal); I87.332 Chronic venous hypertension (idiopathic) with ulcer and inflammation of left lower extremity; I96 Gangrene, not elsewhere classified | CPT/HCPCS: 11042 ==

== ENCOUNTER → 2019-01-23 | Outpatient (CLI) | payer MEDICARE | LOC: WOUNDCARE 09:57 | PROVIDERS: ATTEND Surgery | DX: I87.332 Chronic venous hypertension (idiopathic) with ulcer and inflammation of left lower extremity (principal); L97.222 Non-pressure chronic ulcer of left calf with fat layer exposed; I96 Gangrene, not elsewhere classified | CPT/HCPCS: 11042 ==

== ENCOUNTER → 2019-02-01 | Outpatient (CLI) | payer MEDICARE | LOC: WOUNDCARE 13:08 | PROVIDERS: ATTEND Surgery | DX: L97.222 Non-pressure chronic ulcer of left calf with fat layer exposed (principal); I87.332 Chronic venous hypertension (idiopathic) with ulcer and inflammation of left lower extremity; I96 Gangrene, not elsewhere classified | CPT/HCPCS: 11042 ==

== ENCOUNTER → 2019-02-06 | Outpatient (CLI) | payer MEDICARE | LOC: WOUNDCARE 10:00 | PROVIDERS: ATTEND Surgery | DX: I87.332 Chronic venous hypertension (idiopathic) with ulcer and inflammation of left lower extremity (principal); L97.222 Non-pressure chronic ulcer of left calf with fat layer exposed; I96 Gangrene, not elsewhere classified | CPT/HCPCS: 11042 ==

== ENCOUNTER → 2019-02-07 | Outpatient (CLI) | payer MEDICARE ==
--- NOTE | 2019-02-07 12:36 | Diagnostic Imaging Report ---
INDICATION: Postmenopausal screening for osteoporosis. COMPARISON: None. FINDINGS: AP Spine L1-L4: [BMD (g/cm2): 1.008] [T-Score: -1.6] [Z-Score: -1.0] [BMD Previous: 1.146] [BMD % Change: -12.0] LT Hip Neck: [BMD (g/cm2): 0.724] [T-Score: -2.3] [Z-Score: -1.0] LT Hip Total: [BMD (g/cm2):0.766] [T-Score:-1.9] [Z-Score: -0.9] [BMD Previous: 0.997] [BMD % Change: -23.2] RT Hip Neck: [BMD (g/cm2):NA] [T-Score:NA] [Z-Score:NA] RT Hip Total: [BMD (g/cm2):NA] [T-score:NA] [Z-Score:NA] [BMD Previous:NA] [BMD % Change:NA] *Indicates significant change from prior examination based on 95% confidence level. World Health Organization criteria for BMD interpretation classify patients as Normal (T-score at or above -1.0), Osteopenic (T-score between -1.0 and -2.5) or Osteoporotic (T-score at or below -2.5). LIMITATIONS AND MODIFICATION: None. FRACTURE RISK (FRAX SCORE): The ten year probability of (%): Major Osteoporotic Fracture: [22.1] Hip Fracture: [8.8] IMPRESSION: 1. Osteopenia (Low bone mass). 2. Baseline examination. 3. See below National Osteoporosis Foundation guidelines on when to potentially initiate pharmacologic therapy. Based on the National Osteoporosis Foundation Guidelines, pharmacologic treatment should be initiated in any of the following, unless clinical conditions suggest otherwise: * Any patient with prior fragility fracture of the hip or vertebrae. A spine fracture indicates 5X risk for subsequent spine fracture and 2X risk for subsequent hip fracture. * Osteoporosis (T-score <-2.5). * Postmenopausal women and men age 50 and older with low bone mass/osteopenia (T-score between -1.0 and -2.5) by DXA and 10-year major osteoporotic fracture greater than 20% or a 10-year probability of hip fracture greater than 3%. These fracture risks are supplied above in the FRAX score, if applicable. * Clinician judgment and/or patient preferences may indicate treatment for people with 10-year fracture probabilities above or below these levels. Dictated by: Dictated on workstation # [id number]
== END ==
LOC: RAD 10:10
PROVIDERS: ATTEND Nurse Practitioner Family
DX: Z13.820 Encounter for screening for osteoporosis (principal); Z00.00 Encounter for general adult medical examination without abnormal findings; M85.89 Other specified disorders of bone density and structure, multiple sites; M19.90 Unspecified osteoarthritis, unspecified site; Z78.0 Asymptomatic menopausal state
CPT/HCPCS: 77080

== ENCOUNTER → 2019-02-20 | Outpatient (CLI) | payer MEDICARE | LOC: WOUNDCARE 10:02 | PROVIDERS: ATTEND Surgery | DX: I87.332 Chronic venous hypertension (idiopathic) with ulcer and inflammation of left lower extremity (principal); L97.222 Non-pressure chronic ulcer of left calf with fat layer exposed; I96 Gangrene, not elsewhere classified | CPT/HCPCS: 11042 ==

== ENCOUNTER → 2019-02-22 | Outpatient (CLI) | payer MEDICARE ==
--- NOTE | 2019-02-22 14:19 | Diagnostic Imaging Report ---
INDICATION: History of trigger finger. COMPARISON: None. FINDINGS: Three views of the left hand were obtained and show no fractures, dislocations, or other acute bony abnormalities. Moderate osteoarthritic changes are noted at the first carpometacarpal joint space. There is also cystic change to the distal margins of the scaphoid, which may be degenerative in nature. Joint spaces are otherwise maintained. The soft tissues appear unremarkable. No radiopaque foreign bodies are identified. IMPRESSION: 1. No acute fracture or dislocation of the left hand. 2. Moderate osteoarthritic changes of the first carpometacarpal joint space with probable subchondral cystic change to the distal scaphoid. Dictated by: Dictated on workstation # [id number]
== END ==
LOC: RAD FS 13:45
PROVIDERS: ATTEND Nurse Practitioner
DX: M65.342 Trigger finger, left ring finger (principal); M18.12 Unilateral primary osteoarthritis of first carpometacarpal joint, left hand
CPT/HCPCS: 73130

== ENCOUNTER → 2019-03-06 | Outpatient (CLI) | payer MEDICARE | LOC: WOUNDCARE 10:06 | PROVIDERS: ATTEND Surgery | DX: L97.222 Non-pressure chronic ulcer of left calf with fat layer exposed (principal); I87.332 Chronic venous hypertension (idiopathic) with ulcer and inflammation of left lower extremity; I96 Gangrene, not elsewhere classified | CPT/HCPCS: 99213 ==

== ENCOUNTER 2019-03-15 08:43 | Outpatient (CLI) | payer MEDICARE ==
[~2019-03-15] VITALS: Ht 160 cm; Wt 99.0 kg
[2019-03-15] MEDS ORDERED: PNT400TCR PO (09:33)
[2019-03-15] MEDS ORDERED: HYDR-3812 PO (09:33)
[2019-03-15] MEDS ORDERED: ALPR0.5T7 PO (09:33)
[2019-03-15] MEDS ORDERED: LORA10TA7 PO (09:35)
== END 2019-03-15 10:59 | disposition home or self-care (01) ==
LOC: PREOP 08:43
PROVIDERS: ATTEND Orthopaedic Surgery
DX: Z01.818 Encounter for other preprocedural examination (principal)

== ENCOUNTER → 2019-03-20 | Outpatient (CLI) | payer MEDICARE ==
[~2019-03-20] MED LIST changes: +ALPR0.5T7 PO; +HYDR-3812 PO; +LORA10TA7 PO; +PNT400TCR PO
== END ==
LOC: WOUNDCARE 10:05
PROVIDERS: ATTEND Surgery
DX: I87.332 Chronic venous hypertension (idiopathic) with ulcer and inflammation of left lower extremity (principal); L97.222 Non-pressure chronic ulcer of left calf with fat layer exposed
CPT/HCPCS: 99212

== ENCOUNTER 2019-03-22 09:07 | Day surgery (SDC) | payer MEDICARE ==
--- NOTE | 2019-03-17 09:36 | HISTORY AND PHYSICAL ---
DATE OF SERVICE: ADMISSION HISTORY AND PHYSICAL This will be for outpatient surgery on 03/22/2019 for left ring finger trigger finger release. HISTORY OF PRESENT ILLNESS: The patient is a 78-year-old right hand dominant female with a 1 year history of left ring finger catching and locking. She reports history of Dupuytren's disease, but reports a catching, locking occurs at the base of her ring finger. She reports no improvement with conservative measures and because of this, elected to proceed with surgical intervention. REVIEW OF SYSTEMS: No chest pain, no shortness of breath, no dysuria. PAST MEDICAL HISTORY: Atrial tachycardia, migraines, diverticulitis, pneumonia, hypothyroidism, degenerative arthritis, polio, diphtheria, smallpox, measles, scarlet fever, degenerative disk disease, neuralgia paresthetica, DJD, COPD, osteoarthritis, history of blood clots. PAST SURGICAL HISTORY: Tonsillectomy, D and C, total hysterectomy, rectal carcinoid, tumor excision, rectal polyp excision, cholecystectomy, herniorrhaphy, right total hip arthroplasty. FAMILY HISTORY: Significant for arthritis, diabetes, hypertension. PRIMARY CARE PROVIDER: Dr. Parham MEDICATIONS: 1. Cefdinir. 2. Doxycycline. 3. Maroa. 4. Pentoxifylline. 5. Spironolactone. 6. Tramadol. 7. Warfarin. 8. Furosemide. 9. Diflucan. 10. Sumatriptan. ALLERGIES: BACTRIM. SOCIAL HISTORY: The patient smokes quarter pack a day. She drinks occasional alcohol. PHYSICAL EXAMINATION: GENERAL: The patient is well developed, well-nourished, in no acute distress. HEENT: Normocephalic, atraumatic. Pupils are equal, round, reactive to light. Oropharynx is clear. NECK: Supple, no lymphadenopathy. LUNGS: Clear to auscultation bilaterally. HEART: Regular rate and rhythm. ABDOMEN: Soft, nontender, nondistended. EXTREMITIES: The left ring finger demonstrates palpable nodule at the A1 esvin and she can demonstrate active catching and locking. She has full MCP, DIP and PIP flexion and extension, otherwise. IMPRESSION: Left ring finger trigger finger. PLAN: Left ring finger trigger release. The risks, benefits, options, ramifications and recovery have been discussed at length with the patient. She understands and wishes to proceed and this will be for outpatient surgery on 03/22/2019. Job ID: [id number] DocumentID: [id number] Dictated Date: 03/17/2019 08:10:23 Industrial Roof Plumber Date: 03/17/2019 09:35:23 Dictated By: HERON PATRICIA MD
[2019-03-22] VITALS (9 sets, daily range): BP systolic 102–114; BP diastolic 61–84
[~2019-03-22] VITALS: Ht 160 cm; Wt 99.0 kg
[~2019-03-22 09:07] MED LIST changes: +HYDROcodone/APAP 7.5 MG/325 MG (LORTAB, LORCET PLUS) TABLET PO PRN
[2019-03-22] MEDS ORDERED: LACTATED RINGERS 1,000 ML IV PRN (09:12)
[2019-03-22] MEDS ORDERED: ceFAZolin INJECTION 1,000 MG in WATER (STERILE) FOR INJECTION 10 ML IV ONE (09:15)
[2019-03-22] MEDS ORDERED: CATHETER FLUSH 10 ML SYR IV PRN (09:30)
--- NOTE | 2019-03-22 09:35 | Progress Note-Pre Operative ---
Pre-Operative Progress Note H&P Reviewed The H&P was reviewed, patient examined and no changes noted. Date Seen by Provider: Mar 22, 2019 Time Seen by Provider: 09:35 Date H&P Reviewed: Mar 22, 2019 Time H&P Reviewed: 09:35 Pre-Operative Diagnosis: left ring finger trigger finger HERON PATRICIA MD Mar 22, 2019 09:35
--- NOTE | 2019-03-22 09:35 | Progress Note-Post Operative ---
Post-Operative Progess Note Surgeon (s)/Ice Resurfacing Machine Operators (s) Surgeon HERON PATRICIA MD Ice Resurfacing Machine Operators: martinez whelan Pre-Operative Diagnosis left ring finger trigger finger Post-Operative Diagnosis left ring finger trigger finger Procedure & Operative Findings Date of Procedure 03/22/19 Procedure Performed/Findings left ring finger trigger release Anesthesia Type MAC plus local Estimated Blood Loss Estimated blood loss (mL): minimal Specimens/Packing Specimens Removed none Packing: none HERON PATRICIA MD Mar 22, 2019 09:35
[2019-03-22] MEDS ORDERED: BUPIVACAINE 0.5% 30 ML (SENSORCAINE) VIAL ONE (10:29)
[2019-03-22] MEDS ORDERED: LIDOCAINE 1% INJ 20 ML 20 ML VIAL ONE (10:29)
[2019-03-22] MEDS ORDERED: MIDAZOLAM 2 MG/2 ML (VERSED) VIAL ONE ×2 (10:37→11:19)
[2019-03-22] MEDS ORDERED: MIDAZOLAM 2 MG/2 ML (VERSED) VIAL IVP ONE (10:45)
[2019-03-22] MEDS ORDERED: fentaNYL INJECTION 100 MCG/2 ML AMP ONE (11:19)
[2019-03-22] MEDS ORDERED: PROPOFOL INJECTION 50 ML IV ONE (11:19)
[2019-03-22] MEDS ORDERED: HYDROmorphone 2 MG/ML VIAL (DILAUDID) IV ONE (12:15)
[2019-03-22] MEDS ORDERED: ONDANSETRON 4 MG/2 ML (SDV) Z0FRAN IVP PRN (12:15)
--- NOTE | 2019-03-22 12:19 | Anesthesia-General Post-Op ---
MAC Patient Condition Mental Status/LOC: Same as Preop Cardiovascular: Satisfactory Nausea/Vomiting: Absent Respiratory: Satisfactory Pain: Controlled Complications: Absent Post Op Complications Complications None Follow Up Care/Instructions Patient Instructions None needed. Anesthesiology Discharge Order Discharge Order Patient is doing well, no complaints, stable vital signs, no apparent adverse anesthesia problems. No complications reported per nursing. ORLANDO WATT CRNA Mar 22, 2019 12:19
[2019-03-22] MEDS ORDERED: HYDR-3812 PO (13:02)
--- NOTE | 2019-03-22 13:20 | NUR ---
dr nye notified that pt's left ring finger is significantly more cyanotic than other fingers. nail bed is also cyanotic. equal warmth to other fingers et cap refill < 3. pt denies significant pain. reports it feels like it is asleep. no edema noted. dressing loosened slightly. dr nye gave no new orders. requests pt notify him with changes in cap refill or decreased warmth. pt et friend notified, voiced understanding.
--- NOTE | 2019-03-22 16:32 | OPERATIVE REPORT ---
DATE OF SERVICE: 03/22/2019 PREOPERATIVE DIAGNOSIS: Left ring finger trigger finger. POSTOPERATIVE DIAGNOSIS: Left ring finger trigger finger. PROCEDURE: Left ring finger A1 esvin release. SURGEON: Riccardo Patricia MD TANK CAR CLEANER: TOY Reese, who assisted throughout the procedure and closed the incision. ANESTHESIA: Monitored anesthesia care by , MECHANICAL INTEGRITY SPECIALIST. TOURNIQUET TIME: 2 minutes at 250 mmHg. ESTIMATED BLOOD LOSS: Minimal. DRAINS: None. COMPLICATIONS: None. POSTOPERATIVE PLAN: Early range of motion. The patient was transferred to the recovery room awake and in stable condition. STATEMENT OF MEDICAL NECESSITY: The patient is a 78-year-old female with left ring finger catching and locking. She was tender over A1 esvin. She does have a history of Dupuytren's contracture. Reports that this can complicate recovery and had recurrent symptoms. PROCEDURE PERFORMED: After risks and benefits of procedure were discussed and questions were answered, an informed consent was signed and placed on chart. The operative site was confirmed in the preoperative holding area initialed by the surgeon. The patient was then transferred to the operating room and after adequate levels of monitored anesthesia care were obtained, a timeout was called, confirming the operative site. Under sterile conditions, the incision site was infiltrated with combination of plain lidocaine and plain Marcaine. Left upper extremity was prepped and draped in the usual sterile fashion with arm elevated, tourniquet was inflated to 250 mmHg. A longitudinal incision was made over the A1 esvin at the base of the left ring finger soft tissues were bluntly dissected exposing the A1 esvin, which was then incised longitudinally. The finger was taken through a range of motion. Full MCP, DIP and PIP flexion and extension with no catching or locking noted. The tourniquet was deflated for a total tourniquet time of 2 minutes. Pressure was used for hemostasis. Wound was copiously irrigated and closed with 4-0 nylon in simple interrupted fashion. Soft dressing was applied. The patient was transferred to the recovery room awake and in stable condition. Job ID: [id number] DocumentID: [id number] Dictated Date: 03/22/2019 12:00:53 Soccer Commentator Date: 03/22/2019 16:31:39 Dictated By: RICCARDO PATRICIA MD
== END 2019-03-22 14:45 | disposition home or self-care (01) ==
LOC: SDC 09:07
PROVIDERS: ATTEND Orthopaedic Surgery
DX: M65.342 Trigger finger, left ring finger (principal); K21.9 Gastro-esophageal reflux disease without esophagitis; J44.9 Chronic obstructive pulmonary disease, unspecified; E03.9 Hypothyroidism, unspecified; I73.9 Peripheral vascular disease, unspecified; G14 Postpolio syndrome; E66.9 Obesity, unspecified; F17.210 Nicotine dependence, cigarettes, uncomplicated; Z88.1 Allergy status to other antibiotic agents; Z88.2 Allergy status to sulfonamides; Z87.39 Personal history of other diseases of the musculoskeletal system and connective tissue; Z82.61 Family history of arthritis; Z79.899 Other long term (current) drug therapy; Z90.710 Acquired absence of both cervix and uterus; Z90.49 Acquired absence of other specified parts of digestive tract; Z96.641 Presence of right artificial hip joint; Z86.718 Personal history of other venous thrombosis and embolism; Z68.38 Body mass index [BMI] 38.0-38.9, adult; Z83.3 Family history of diabetes mellitus; Z82.49 Family history of ischemic heart disease and other diseases of the circulatory system
CPT/HCPCS: 36415; 85610; 87081

== ENCOUNTER → 2019-05-09 | Outpatient (CLI) | payer MEDICARE ==
[~2019-05-09] MED LIST changes: -HYDROcodone/APAP 7.5 MG/325 MG (LORTAB, LORCET PLUS) TABLET PO PRN
--- NOTE | 2019-05-09 15:26 | Diagnostic Imaging Report ---
EXAMINATION: Right shoulder at 2:03 p.m. INDICATION: Shoulder pain. Three views were obtained. There are no prior studies available for comparison. FINDINGS: There is no fracture, dislocation, or acute bony abnormality evident. There is fairly severe degenerative disease involving the glenohumeral joint. There is marked narrowing of the joint, and there is sclerosis of the opposing surfaces of the humeral head and the glenoid. There is moderate degenerative disease of the acromioclavicular joint. The soft tissues are unremarkable. IMPRESSION: 1. There is no evidence for an acute bony abnormality. 2. There is fairly severe degenerative disease involving the glenohumeral joint. 3. If there is clinical concern regarding an injury to the rotator cuff, MRI would be recommended for further evaluation. Dictated by: Dictated on workstation # [id number]
== END ==
LOC: RAD FS 13:57
PROVIDERS: ATTEND Nurse Practitioner
DX: M19.011 Primary osteoarthritis, right shoulder (principal)
CPT/HCPCS: 73030

== ENCOUNTER → 2020-06-11 | Outpatient (CLI) | payer MEDICARE ==
[~2020-06-11] MED LIST changes: +ACHD5005 PO; +ASPI-1238 PO; -ASPI-983 PO; -HYDR-3812 PO; -TRAM50TA2 PO; -WARF1TAB82 PO; +WARF4TAB3 PO; -WARF4TAB70 PO; +WRF1T PO
--- NOTE | 2020-06-11 11:33 | Diagnostic Imaging Report ---
INDICATION: Left hip pain COMPARISON: None. FINDINGS: 2 views of the left hip were obtained and show no fractures, dislocations, or other acute bony abnormalities. Joint spaces are well maintained throughout. The soft tissues appear unremarkable. No radiopaque foreign bodies are identified. IMPRESSION: Unremarkable radiographic exam of the left hip. Dictated by: Dictated on workstation # [id number]
== END ==
LOC: RAD FS 09:29
PROVIDERS: ATTEND Nurse Practitioner
DX: M25.552 Pain in left hip (principal)
CPT/HCPCS: 73502

== ENCOUNTER → 2020-11-05 | Outpatient (CLI) | payer MEDICARE ==
--- NOTE | 2020-11-05 18:28 | Diagnostic Imaging Report ---
EXAMINATION: Right shoulder 2 or more views. HISTORY: Arthritis COMPARISON: 05/09/2019 FINDINGS: There is still osteoarthritis of the right shoulder joint, similar to prior exam. There is mild acromioclavicular osteoarthritis. No fracture or malalignment is seen. IMPRESSION: 1. Severe right glenohumeral and mild right acromioclavicular joint osteoarthritis, unchanged. Dictated by: Dictated on workstation # [id number]
== END ==
LOC: RAD FS 14:06
PROVIDERS: ATTEND Nurse Practitioner
DX: M19.011 Primary osteoarthritis, right shoulder (principal)
CPT/HCPCS: 73030

== ENCOUNTER 2022-03-02 14:56 | Emergency (ER) | payer MEDICARE ==
--- NOTE | 2022-03-02 16:19 | Diagnostic Imaging Report ---
INDICATION: Right foot injury with pain. FINDINGS: AP, oblique, and lateral views of the right foot are obtained. There is no evidence of an acute fracture or malalignment. No lytic or sclerotic lesion is identified. There is no evidence of radiopaque foreign body. IMPRESSION: No acute osseous abnormality. Dictated by: Dictated on workstation # [id number]
--- NOTE | 2022-03-02 17:25 | ED Lower Extremity ---
General Chief Complaint: Lower Extremity Stated Complaint: FALL Nursing Triage Note: Patient presents to the ED with c/o right foot pain. States she fell 4 days ago after getting tangled in the strap of a duffle bag. Reports it caused her to fall backward landing on her buttocks with her feet extending outward kicking the bedframe. Reports increased swelling and pain when she tries to apply any weight to that right foot. Source: patient, family Exam Limitations: no limitations History of Present Illness Date Seen by Provider: Mar 02, 2022 Allergies and Home Medications Allergies Coded Allergies: sulfamethoxazole (Verified Allergy, Unknown, 11/02/18) trimethoprim (Verified Allergy, Unknown, 11/02/18) amoxicillin (Unverified Adverse Reaction, Unknown, vomiting, 03/22/19) clavulanic acid (Unverified Adverse Reaction, Unknown, vomiting, 03/22/19) Patient Home Medication List Alprazolam (Alprazolam) 0.5 Mg Tablet, 0.5 MG PO TID PRN for ANXIETY, (Reported) Entered as Reported by: KIERRA PEGUERO on 03/15/19 0933 Aspirin (Aspirin EC) 81 Mg Tablet.dr, 81 MG PO DAILY, (Reported) Entered as Reported by: RENEE MELARA on 11/10/18 0939 Calcium Carbonate/Vitamin D3 (Caltrate 600 + D Tablet) 1 Each Tablet, 1 TAB PO BID, (Reported) Entered as Reported by: RENEE MELARA on 11/10/18 0942 Fluticasone Propionate (Fluticasone Propionate) 16 Gm [place].susp, 2 SPRAYS NS DAILY PRN for CONGESTION, (Reported) Entered as Reported by: RENEE MELARA on 11/10/18 0824 Furosemide (Furosemide) 20 Mg Tablet, 20-40 MG PO DAILY PRN for SWELLING, (Reported) Entered as Reported by: RENEE MELARA on 11/10/18 0942 Hydrocodone Bit/Acetaminophen (Lortab 5 Mg Tablet) 1 Each Tablet, 1 TAB PO DAILY PRN for PAIN-MODERATE, (Reported) Entered as Reported by: KIERRA PEGUERO on 03/15/19 0933 Hydrocodone Bit/Acetaminophen (Lortab 5 Mg Tablet) 1 Each Tablet, 1 TAB PO Q4H Prescribed by: PÉREZ MARTIN on 03/22/19 1302 Ipratropium/Albuterol Sulfate (Iprat-Albut 0.5-3(2.5) mg/3 ml) 3 Ml Ampul.neb, 3 ML NEB QID PRN for SHORTNESS OF BREATH, (Reported) Entered as Reported by: RENEE MELARA on 11/10/18 0942 L.acidoph & Paracasei,B.lactis (Probiotic) 1 Each Capsule, 1 CAP PO HS, (Reported) Entered as Reported by: RENEE MELARA on 11/10/18 0939 Loratadine (Loratadine) 10 Mg Tablet, 10 MG PO HS, (Reported) Entered as Reported by: KIERRA PEGUERO on 03/15/19 0935 Pentoxifylline (Pentoxifylline) 400 Mg Tablet.er, 400 MG PO TID, (Reported) Entered as Reported by: KIERRA PEGUERO on 03/15/19 0933 Spironolactone (Spironolactone) 50 Mg Tablet, 50 MG PO DAILY, (Reported) Entered as Reported by: RENEE MELARA on 11/10/18 08 Sumatriptan Succinate (Sumatriptan Succinate) 100 Mg Tablet, 100 MG PO UD PRN for MIGRAINE, (Reported) Entered as Reported by: RENEE MELARA on 11/10/18823 Tramadol HCl (Tramadol HCl) 50 Mg Tablet, 50-100 MG PO QID PRN for PAIN- MODERATE, (Reported) Entered as Reported by: RENEE MELARA on 11/10/18823 Warfarin Sodium (Warfarin Sodium) 5 Mg Tablet, 5 MG PO DAILY@1800, (Reported) Entered as Reported by: RENEE MELARA on 11/10/18 08 Past Gmczzus-Hdnjmk-Vidnyb Hx Patient Social History Tobacco Use?: Yes Tobacco type used: Cigarettes Smoking Status: Current Everyday Smoker Use of E-Cig and/or Vaping dev: Yes E-Cig or Vaping type used: Nicotine Use of E-Cig and/or Vaping [place]: Current Everyday User Substance use?: No Alcohol Use?: Yes Alcohol Frequency: Once in a while Pt feels they are or have been: No Immunizations Up To Date Tetanus Booster (TDap): Unknown Seasonal Allergies Seasonal Allergies: No Past Medical History Surgeries: Yes (D&CX2,INC.HERNIA REPAIR,EXC.RECTAL TUMOR, right hip replacement, ing hernia) Adenoidectomy, Gallbladder, Hysterectomy, Joint Replacement, Tonsillectomy Respiratory: Yes Pneumonia, Pulmonary Embolism, COPD Cardiac: Yes Chronic Edema/Swelling, Deep Vein Thrombosis, Peripheral Vascular Neurological: Yes (post polio syndrome) Reproductive Disorders: No Sexually Transmitted Disease: No Genitourinary: Yes Neurogenic Bladder Gastrointestinal: Yes Gastroesophageal Reflux Musculoskeletal: Yes (VALGUS DEFORMITY OF THE ANKLES/PLANTAR FASCITIS) Endocrine: Yes Hypothyroidsim HEENT: No Cancer: Yes Rectal What Type of Treatment Did You: Surgical Intervention Psychosocial: No Integumentary: Yes (going to wound care weekly for healing wound on leg) Blood Disorders: Yes (DVT/PE) Family Medical History Patient reports no known family medical history. No Pertinent Family Hx Physical Exam Vital Signs Vital Signs - First Documented 03/02/22 15:00 Temp 36.2 Pulse 75 Resp 16 B/P (MAP) 104/70 (81) Pulse Ox 94 O2 Delivery Room Air Capillary Refill : Less Than 3 Seconds Height, Weight, BMI Height: 5'3.00" Weight: 227lbs. 7.0oz. 103.184642ev; 38.67 BMI Method:Stated Progress/Results/Core Measures Results/Orders My Orders Orders - CADE MCCONNELL MD Foot 3 View Right (03/02/22 15:54) Vital Signs/I&O 03/02/22 15:00 Temp 36.2 Pulse 75 Resp 16 B/P (MAP) 104/70 (81) Pulse Ox 94 O2 Delivery Room Air Blood Pressure Mean: 81 Departure Impression Primary Impression: Right foot injury Qualified Codes: S99.921A - Unspecified injury of right foot, initial encounter Additional Impression: Fall on same level Qualified Codes: W18.30XA - Fall on same level, unspecified, initial encounter Disposition: 01 HOME, SELF-CARE Condition: Stable Departure-Patient Inst. Decision time for Depature: 17:24 Referrals: RENEE WILSON APRN (PCP) Primary Care Physician [facility] (Family) Primary Care Physician Patient Instructions: Contusion (DC), Foot Sprain ED Add. Discharge Instructions: No fractures or dislocations were seen on your x-rays. Gradually increase level of activity as pain allows. You may bear weight as tolerated. Continue to use a walker to assist with weightbearing and balance support. You may use your hydrocodone or Ultram (tramadol) as previously directed. Elevation and 20- minute intervals of icing may help reduce pain and swelling. Allow yourself an additional 1 to 2 weeks of healing. If you are not making good progress by then, contact your primary care provider for further evaluation. Return to the ER if you have notable worsening of condition despite following these instructions. All discharge instructions reviewed with patient and/or family. Voiced understanding. CADE MCCONNELL MD Mar 02, 2022 17:25
[2022-03-02 17:33] VITALS: BP 104/70
== END 2022-03-02 17:34 | disposition home or self-care (01) ==
LOC: EDUNIT# 14:56 → ER FS 14:58
DX: S99.921A Unspecified injury of right foot, initial encounter (principal); F17.210 Nicotine dependence, cigarettes, uncomplicated; F17.290 Nicotine dependence, other tobacco product, uncomplicated; W01.0XXA Fall on same level from slipping, tripping and stumbling without subsequent striking against object, initial encounter
CPT/HCPCS: 73630

== ENCOUNTER → 2022-06-11 | Outpatient (CLI) | payer MEDICARE ==
--- NOTE | 2022-06-11 18:28 | Diagnostic Imaging Report ---
Exam: Left upper extremity ultrasound. Date: June 11, 2022. Indication: 81-year-old female, left forearm mass. Comparison: None. Findings: Targeted ultrasound was performed at area of focal concern which is labeled "6 cm distal to the elbow joint". At this location, there is a superficially located hypoechoic mass measuring 1.3 x 0.7 x 1.5 cm in size without well demonstrated internal blood flow. Impression: Nonspecific subcutaneous mass which appears most likely solid just distal to the elbow joint measuring 1.3 x 0.7 x 1.5 cm in size. If further imaging evaluation is needed, recommend dedicated pre and post contrast MRI. Otherwise, biopsy and/or excision for diagnosis is recommended. Dictated by: Dictated on workstation # [id number]
== END ==
LOC: RAD FS 11:56
PROVIDERS: ATTEND Nurse Practitioner Family
DX: R22.32 Localized swelling, mass and lump, left upper limb (principal)
CPT/HCPCS: 76881

== ENCOUNTER 2022-07-30 05:37 | Outpatient (CLI) | payer MEDICARE ==
[~2022-07-30] VITALS: Ht 161 cm; Wt 103.6 kg
[2022-08-03] MEDS ORDERED: WARF6TAB49 PO (15:28)
[2022-08-03] MEDS ORDERED: ALB0.5V INH (15:28)
== END 2022-08-03 15:50 | disposition home or self-care (01) ==
LOC: PREOP 05:37
PROVIDERS: ATTEND Otolaryngology Otolaryngology/Facial Plastic Surgery
DX: Z01.818 Encounter for other preprocedural examination (principal)

== ENCOUNTER 2022-08-07 08:16 | Day surgery (SDC) | payer MEDICARE ==
[~2022-08-07] VITALS: Ht 161 cm; Wt 103.6 kg
[2022-08-07] VITALS (11 sets, daily range): BP systolic 110–129; BP diastolic 54–96
[~2022-08-07 08:16] MED LIST changes: +ALB0.5V INH; +WARF6TAB49 PO
[2022-08-07] MEDS ORDERED: LACTATED RINGERS 1,000 ML IV PRN (08:30)
[2022-08-07] MEDS ORDERED: LIDOCAINE/EPI 1%-1:100,000 (XYLOCAINE) 20ML ONE (08:37)
[2022-08-07] MEDS ORDERED: proPOfol 200 MG/20 ML (DIPRIVAN) VIAL IV ONE (08:52)
[2022-08-07] MEDS ORDERED: ONDANSETRON 4 MG/2 ML (SDV) Z0FRAN ONE ×2 (08:52→09:57)
[2022-08-07] MEDS ORDERED: SEVOFLURANE (ULTANE) 15 ML INHAL SOLN ONE (08:52)
[2022-08-07] MEDS ORDERED: LIDOCAINE PF 2% 5 ML (XYLOCAINE) VIAL ONE (08:52)
[2022-08-07] MEDS ORDERED: fentaNYL INJ 100 MCG/2 ML AMP ONE (08:53)
[2022-08-07] MEDS ORDERED: CLINDAMYCIN 600 MG/50 ML IVPB 50 ML IV ONE ×2 (09:11→09:15)
[2022-08-07 09:17] LABS: BASOPHILS % (AUTO) 0 % (0-10); EOSINOPHILS # (AUTO) 0.1 10^3/uL (0.0-0.3); EOSINOPHILS % (AUTO) 1 % (0-10); HEMATOCRIT 52 % (35-52); HEMOGLOBIN 17.1 g/dL (11.5-16.0); LYMPHOCYTES # (AUTO) 2.7 10^3/uL (1.0-4.0); LYMPHOCYTES % (AUTO) 38 % (12-44); MEAN CORPUSCULAR HEMOGLOBIN 31 pg (25-34); MEAN CORPUSCULAR HGB CONC 33 g/dL (32-36); MEAN CORPUSCULAR VOLUME 95 fL (80-99); MEAN PLATELET VOLUME 10.9 fL (9.0-12.2); MONOCYTES # (AUTO) 0.6 10^3/uL (0.0-1.0); MONOCYTES % (AUTO) 8 % (0-12); NEUTROPHILS # (AUTO) 3.7 10^3/uL (1.8-7.8); NEUTROPHILS % (AUTO) 52 % (42-75); PLATELET COUNT 147 10^3/uL (130-400); WHITE BLOOD COUNT 7.1 10^3/uL (4.3-11.0)
--- NOTE | 2022-08-07 09:23 | Progress Note-Pre Operative ---
Pre-Operative Progress Note Date of Available H&P: Aug 07, 2022 Date H&P Reviewed: Aug 07, 2022 Time H&P Reviewed: 09:00 History & Physical: H&P Reviewed, Patient Examed, No changes noted Changes from last HP none Pre-Operative Diagnosis: Midline Posterior Scalp Lesion HERON CERVANTES MD Aug 07, 2022 09:23
--- NOTE | 2022-08-07 09:26 | Progress Note-Post Operative ---
Post-Operative Progess Note Surgeon (s)/Cutting Machine Offbearer (s) Surgeon HERON CERVANTES MD Cutting Machine Offbearer n/a Pre-Operative Diagnosis Midline Posterior Scalp Lesion Post-Operative Diagnosis same Post-Op Procedure Note Date of Procedure: Aug 07, 2022 Name of Procedure Performed: Excision of posterior scalp lesion with ftsg reconstruciotn, donor site right pre-auricular region Description & Findings Description and Findings: n/a Anesthesia Type get Estimated Blood Loss minimal Packing none. Specimen(s) collected/removed scalp lesio nto pathology for review HERON CERVANTES MD Aug 07, 2022 09:26
[2022-08-07] MEDS ORDERED: ACETAMINOPHEN 325 MG TABLET PO PRN (09:30)
[2022-08-07] MEDS ORDERED: HYDROcodone/APAP 5 MG/325 MG (LORTAB) TAB PO PRN (09:30)
[2022-08-07 09:32] LABS: CALCIUM 10.2 MG/DL (8.5-10.1); CREATININE SERUM 0.99 MG/DL (0.60-1.30); POTASSIUM 3.8 MMOL/L (3.6-5.0); PROTHROMBIN TIME PATIENT 13.9 SEC (12.2-14.7)
[2022-08-07] MEDS ORDERED: LIDOCAINE/EPI 1%-1:100,000 (XYLOCAINE) 20ML INJ ONE (09:42)
[2022-08-07] MEDS ORDERED: MUPIROCIN 2% OINT 22 GM (BACTROBAN) TUBE ONE (09:47)
[2022-08-07] MEDS ORDERED: MUPIROCIN 2% OINT 22 GM (BACTROBAN) TUBE TOP ONE (09:55)
--- NOTE | 2022-08-07 10:08 | Anesthesia-General Post-Op ---
General Patient Condition Mental Status/LOC: Same as Preop Cardiovascular: Satisfactory Nausea/Vomiting: Absent Respiratory: Satisfactory Pain: Controlled Complications: Absent Post Op Complications Complications None Follow Up Care/Instructions Patient Instructions None needed. Anesthesia/Patient Condition Patient Condition Patient is doing well, no complaints, stable vital signs, no apparent adverse anesthesia problems. No complications reported per nursing. ROCIO KRUEGER CRNA Aug 07, 2022 10:08
[2022-08-07] MEDS ORDERED: fentaNYL INJ 100 MCG/2 ML AMP IVP ONE (10:15)
[2022-08-07] MEDS ORDERED: ONDANSETRON 4 MG/2 ML (SDV) Z0FRAN IVP PRN (10:15)
[2022-08-07] MEDS ORDERED: morphine INJ 10 MG/ML 1ML (SYR OR VIAL) IVP ONE (10:15)
[2022-08-07] MEDS ORDERED: MEPERIDINE (DEMEROL) INJ 50 MG/ML IVP ONE (10:15)
== END 2022-08-07 12:13 ==
LOC: SDC 08:16
PROVIDERS: ATTEND Otolaryngology Otolaryngology/Facial Plastic Surgery
DX: C43.4 Malignant melanoma of scalp and neck (principal); L98.499 Non-pressure chronic ulcer of skin of other sites with unspecified severity
CPT/HCPCS: 36415; 80048; 85025; 85610; 87081; 93005

== ENCOUNTER 2022-11-12 05:40 | Outpatient (CLI) | payer MEDICARE ==
[~2022-11-12] VITALS: Ht 160 cm; Wt 104.6 kg
[2022-11-12] MEDS ORDERED: WARF-48 PO (09:19)
[2022-11-12] MEDS ORDERED: FURO20TA4 PO (09:19)
[2022-11-12] MEDS ORDERED: ROPI0.253 PO (09:19)
[2022-11-12] MEDS ORDERED: WRF1T PO ×2 (09:19)
== END 2022-11-12 09:49 | disposition home or self-care (01) ==
LOC: PREOP 05:40
PROVIDERS: ATTEND Orthopaedic Surgery
DX: Z01.818 Encounter for other preprocedural examination (principal)

== ENCOUNTER 2022-11-18 09:42 | Day surgery (SDC) | payer MEDICARE ==
--- NOTE | 2022-11-12 09:22 | HISTORY AND PHYSICAL ---
ADMISSION HISTORY AND PHYSICAL This will be for outpatient surgery on 11/18/2022, for right ring finger trigger release. HISTORY OF PRESENT ILLNESS: The patient is an 82-year-old right-hand dominant female with complaints of right ring finger catching and locking over the last several months. She reports activity limitations because of the finger and because of this has elected to proceed with surgical intervention. REVIEW OF SYSTEMS: No chest pain, no shortness of breath. No dysuria. PAST MEDICAL HISTORY: Migraines, atrial tachycardia, diverticulitis, pneumonia, hypothyroidism, degenerative arthritis, left foot plantar fasciitis, polio, diphtheria, smallpox, measles, scarlet fever, degenerative disk disease, meralgia paresthetica, DJD, COPD. PAST SURGICAL HISTORY: Tonsillectomy, D and C, hysterectomy, rectal tumor excision, cholecystectomy, incisional herniorrhaphy, right total hip, left ring finger trigger release. FAMILY HISTORY: Significant for cancer. PRIMARY CARE PROVIDER: [facility]. ALLERGIES: BACTRIM AND ADHESIVE TAPE. SOCIAL HISTORY: The patient is a former smoker. She drinks alcohol rarely. PHYSICAL EXAMINATION: GENERAL: The patient is well-developed, well-nourished, in no acute distress. HEENT: Normocephalic, atraumatic. Pupils equal, round, react to light. Oropharynx is clear. NECK: Supple. No lymphadenopathy. LUNGS: Clear to auscultation bilaterally. HEART: Regular rate and rhythm. ABDOMEN: Soft, nontender, nondistended. EXTREMITIES: The right ring finger demonstrates tenderness over A1 esvin. She can demonstrate active triggering. She has intact MCP, DIP and PIP flexion and extension. IMPRESSION: Right ring finger trigger. PLAN: Right ring finger trigger release. Risks, benefits, options, ramifications and recovery were discussed at length with the patient. She understands and wishes to proceed. Job ID: [id number] DocumentID: [id number] Dictated Date: 11/02/2022 11:13:48 Naval Designer Date: 11/02/2022 11:59:00 Dictated By: HERON PATRICIA MD
[2022-11-18] VITALS (7 sets, daily range): BP systolic 121–165; BP diastolic 72–97
[~2022-11-18 09:42] MED LIST changes: +HYDROcodone/APAP 5 MG/325 MG (LORTAB) TAB PO PRN; +ROPI0.253 PO
[2022-11-18] MEDS ORDERED: LACTATED RINGERS 1,000 ML IV PRN (10:15)
[2022-11-18] MEDS ORDERED: ceFAZolin INJECTION 2,000 MG in NS (IVPB) 50 ML IV ONE (10:15)
[2022-11-18] MEDS ORDERED: PROPOFOL INJECTION 50 ML IV ONE (10:54)
[2022-11-18] MEDS ORDERED: fentaNYL INJ 100 MCG/2 ML AMP ONE (10:54)
[2022-11-18] MEDS ORDERED: MIDAZOLAM 2 MG/2 ML (VERSED) VIAL ONE (10:54)
[2022-11-18] MEDS ORDERED: BUPIVACAINE 0.5% 30 ML (SENSORCAINE) VIAL ONE (11:13)
[2022-11-18] MEDS ORDERED: LIDOCAINE 1% INJ 20 ML VIAL ONE (11:13)
--- NOTE | 2022-11-18 11:30 | Progress Note-Pre Operative ---
Pre-Operative Progress Note Date of Available H&P: Nov 12, 2022 Date H&P Reviewed: Nov 18, 2022 Time H&P Reviewed: 07:11 Changes from last HP none Pre-Operative Diagnosis: right ring trigger finger HERON PATRICIA MD Nov 18, 2022 11:30
--- NOTE | 2022-11-18 11:31 | Progress Note-Post Operative ---
Post-Operative Progess Note Surgeon (s)/Manager Secondary (s) Surgeon HERON PATRICIA MD Manager Secondary: Jordi Brito Pre-Operative Diagnosis right ring trigger finger Post-Operative Diagnosis right ring trigger finger Procedure & Operative Findings Date of Procedure 11/18/22 Procedure Performed/Findings right ring finger A1 esvin release Anesthesia Type MAC plus local Estimated Blood Loss Estimated blood loss (mL): minimal Specimens/Packing Specimens Removed none Packing: none HERON PATRICIA MD Nov 18, 2022 11:31
[2022-11-18] MEDS ORDERED: HYDROcodone/APAP 5 MG/325 MG (LORTAB) TAB PO ONE (12:00)
--- NOTE | 2022-11-18 12:26 | Anesthesia-General Post-Op ---
MAC Patient Condition Mental Status/LOC: Same as Preop Cardiovascular: Satisfactory Nausea/Vomiting: Absent Respiratory: Satisfactory Pain: Controlled Complications: Absent Post Op Complications Complications None Follow Up Care/Instructions Patient Instructions None needed. Anesthesiology Discharge Order Discharge Order Patient is doing well, no complaints, stable vital signs, no apparent adverse anesthesia problems. No complications reported per nursing. UMM MICHAELS CRNA Nov 18, 2022 12:26
[2022-11-18] MEDS ORDERED: ONDANSETRON 4 MG/2 ML (SDV) Z0FRAN IVP PRN (12:30)
[2022-11-18] MEDS ORDERED: HYDROmorphone 2 MG/ML VIAL (DILAUDID) IV ONE (12:30)
--- NOTE | 2022-11-18 13:55 | OPERATIVE REPORT ---
DATE OF SERVICE: 11/18/2022 PREOPERATIVE DIAGNOSIS: Right ring finger trigger finger. POSTOPERATIVE DIAGNOSIS: Right ring finger trigger finger. PROCEDURE: Right ring finger A1 esvin release. SURGEON: Riccardo Patricia MD [employer]CR[employer] OPERATOR: Jordi Brito, who assisted throughout the procedure and closed the incision. ANESTHESIA: Monitored anesthesia care plus local by Santiago Villasenor CRNA. TOURNIQUET TIME: 3 minutes at 250 mmHg. ESTIMATED BLOOD LOSS: Minimal. DRAINS: None. COMPLICATIONS: None. POSTOPERATIVE PLAN: Early range of motion. The patient was transferred to the recovery room awake and in stable condition. STATEMENT OF MEDICAL NECESSITY: The patient is an 82-year-old female with complaints of right ring finger catching and locking. She can demonstrate active triggering. She was tender over A1 esvin. She tried activity modifications and injections without relief. Due to functional impairment and failure to improve with conservative measures, the patient elected to proceed with surgical intervention. DESCRIPTION OF PROCEDURE: After risks and benefits of the procedure were discussed and questions were answered and informed consent was signed and placed on the chart, the operative site was confirmed in the preoperative holding area initialed by surgeon. The patient was then transported to the operating room. After adequate levels of monitored anesthesia care were obtained, a timeout was called, confirming the operative site. Under sterile conditions, incision site was infiltrated with a combination of plain lidocaine and plain Marcaine. The right upper extremity was prepped and draped in the usual sterile fashion with arm elevated, tourniquet was inflated to 250 mmHg. An incision was made longitudinally over the A1 esvin at the base of the ring finger. The underlying soft tissues were carefully dissected exposing the A1 esvin, which was then sharply incised by pushing through with the scalpel blade. Flexor tendons were identified revealed no gross abnormalities. The finger was taken through range of motion with no catching or locking noted with full motion noted. The tourniquet was deflated. Pressure was used for hemostasis. Wound was copiously irrigated and closed with 4-0 nylon in simple interrupted fashion. A soft dressing was applied. The patient was transferred to the recovery room awake and in stable condition. Job ID: [id number] DocumentID: [id number] Dictated Date: 11/18/2022 12:18:29 Lockstitch Cup Setter Date: 11/18/2022 13:54:00 Dictated By: RICCARDO PATRICIA MD
== END 2022-11-18 13:40 | disposition home or self-care (01) ==
LOC: SDC 09:42
PROVIDERS: ATTEND Orthopaedic Surgery
DX: M65.341 Trigger finger, right ring finger (principal); F17.290 Nicotine dependence, other tobacco product, uncomplicated; E66.01 Morbid (severe) obesity due to excess calories; Z68.41 Body mass index [BMI] 40.0-44.9, adult
CPT/HCPCS: 87081

== ENCOUNTER → 2023-05-19 | Outpatient (CLI) | payer MEDICARE ==
[~2023-05-19] MED LIST changes: +CATHETER FLUSH 10 ML SYR IVP PRN; -HYDROcodone/APAP 5 MG/325 MG (LORTAB) TAB PO PRN; +REGADENOSON 0.4 MG/5 ML SYR IV ONE; -ROPI0.253 PO; +ROPI0.2533 PO
[2023-05-19 12:57] VITALS: BP 124/66
--- NOTE | 2023-05-19 15:12 | Cardiology Stress Test Report ---
Stress Test Report Date of Procedure/Referring: Date of Procedure: May 19, 2023 PCP Josefina Martinez Aprn Admitting Physician Admitting Physician: Attending Physician: Carley Salazar MD Baseline Heart Rate: 55 Baseline Blood Pressure: Blood Pressure Systolic: 124 Blood Pressure Diastolic: 66 Baseline Vitals Vital Signs Date Time Temp Pulse Resp B/P (MAP) Pulse Ox O2 Delivery O2 Flow Rate FiO2 05/19/23 12:57 55 124/66 (85) Baseline EKG: Baseline EKG: NSR Summary After explaining the procedure to the patient, she signed a consent and then brought to the stress nuclear laboratory. Patient received 0.4 mg Lexiscan for stress test, ECG, heart rate and blood pressure were monitored continuously. Resting and stress dose of radio tracer were injected, imaging was acquired and reviewed in short axis, horizontal long axis and vertical long axis views. TID: 1.01 SSS: 0 SDS: 0 EF: 76 Patient tolerated Lexiscan well No significant ischemia or infarction noted on SPECT images Normal left ventricular size, ejection fraction 76% Copy Copies To 1: [facility] [place]LEY SALAZAR MD May 19, 2023 15:12
== END ==
LOC: CARD 08:59
PROVIDERS: ATTEND Internal Medicine Cardiovascular Disease
DX: I10 Essential (primary) hypertension (principal); I25.10 Atherosclerotic heart disease of native coronary artery without angina pectoris
CPT/HCPCS: 78452; 93017; A9502